=== PATIENT | female | born 1980 | race Caucasian/White ===

== ENCOUNTER 2016-07-22 15:16 | Day surgery (SDC) | payer MEDICARE, MEDICAID ==
[2016-07-22] MEDS ORDERED: NO HOME MEDICATION XX (15:30)
[2016-07-22 16:02] LABS: BASO % 0.1 % (0-2); EOS % 0.8 % (0-7); EOSINOPHIL ABSOLUTE COUNT 0.1 tho/cmm (0.0-0.7); HCT-HEMATOCRIT 41.7 % (34.0-49.0); HGB-HEMOGLOBIN 14.8 gm/dl (12.0-15.5); IMMATURE GRANULOCYTES ABSOLUTE 0.04 tho/cmm (0-0.03); IMMATURE GRANULOCYTES PERCENT 0.3 % (0-0.3); LYMPH ABSOLUTE COUNT 2.5 tho/cmm (0.8-4.5); MCH (MEAN CORPUSCULAR HGB) 29.9 pg (28.0-32.0); MCHC MEAN CORPUSCULAR HGB CONC 35.5 % (32.0-36.0); MCV (MEAN CELL VOLUME) 84.2 fl (82.0-96.0); MEAN PLATELET VOLUME 10.1 cmc (9.4-12.4); MONO % 5.1 % (0-12); MONOCYTE ABSOLUTE COUNT 0.7 tho/cmm (0.0-1.2); NEUTROPHIL ABSOLUTE COUNT 10.4 tho/cmm (1.6-8.0); NEUTROPHIL-AUTOMATED 10.4 tho/cmm (1.6-8.0); NEUTROPHILS % 75.7 % (40-80); PLATELET COUNT 267 tho/cmm (150-450); RED BLOOD COUNT 4.95 mil/cmm (4.00-5.20); RED CELL DISTRIBUTION WIDTH 13.4 % (12.4-16.4); WHITE BLOOD COUNT 13.8 tho/cmm (4.0-10.0)
[2016-07-22 16:08] LABS: PREGNANCY-SERUM POSITIVE (NEGATIVE)
[2016-07-22 16:15] LABS: ALBUMIN 3.8 g/dl (3.5-5.0); ALKALINE PHOSPHATASE 59 U/L (33-138); ALT/SGPT 24 U/L (12-78); ANION GAP 17 mmol/L (0-20); AST/SGOT 16 U/L (10-40); BILIRUBIN,TOTAL 1.6 mg/dl (0-1.5); BLOOD UREA NITROGEN 8 mg/dl (6-24); CALCIUM 8.8 mg/dl (8.5-10.5); CARBON DIOXIDE-VENOUS 19 mmol/L (22-32); CHLORIDE 106 mmol/l (96-110); CREATININE 0.98 mg/dl (0.50-1.10); GLUCOSE 104 mg/dL (70-110); LIPASE 127 U/L (73-393); POTASSIUM 3.9 mmol/L (3.7-5.1); SODIUM 138 mmol/L (135-145); eGFR VALUE FOR BLACK 85 mL/Min
[2016-07-22 19:54] LABS: HCT-HEMATOCRIT 32.6 % (34.0-49.0); MCV (MEAN CELL VOLUME) 87.2 fl (82.0-96.0); RED CELL DISTRIBUTION WIDTH 13.6 % (12.4-16.4)
[2016-07-23 00:48] LABS: BASO % 0.1 % (0-2); HCT-HEMATOCRIT 28.9 % (34.0-49.0); IMMATURE GRANULOCYTES ABSOLUTE 0.05 tho/cmm (0-0.03); IMMATURE GRANULOCYTES PERCENT 0.4 % (0-0.3); LYMPH % 6.5 % (20-45); LYMPH ABSOLUTE COUNT 0.8 tho/cmm (0.8-4.5); MCH (MEAN CORPUSCULAR HGB) 29.7 pg (28.0-32.0); MCHC MEAN CORPUSCULAR HGB CONC 34.6 % (32.0-36.0); MCV (MEAN CELL VOLUME) 85.8 fl (82.0-96.0); MEAN PLATELET VOLUME 9.5 cmc (9.4-12.4); MONO % 1.3 % (0-12); MONOCYTE ABSOLUTE COUNT 0.2 tho/cmm (0.0-1.2); NEUTROPHIL ABSOLUTE COUNT 10.8 tho/cmm (1.6-8.0); NEUTROPHIL-AUTOMATED 10.8 tho/cmm (1.6-8.0); NEUTROPHILS % 91.7 % (40-80); PLATELET COUNT 161 tho/cmm (150-450); RED BLOOD COUNT 3.37 mil/cmm (4.00-5.20); RED CELL DISTRIBUTION WIDTH 13.8 % (12.4-16.4); WHITE BLOOD COUNT 11.8 tho/cmm (4.0-10.0)
[2016-07-23] MEDS ORDERED: IBUPROFEN600 M1 PO (10:52)
[2016-07-23] MEDS ORDERED: NORCO 5-325 TA1 EACH PO (10:55)
[2016-07-23] MEDS ORDERED: COLACE100 M1 PO (10:57)
[2016-07-23] MEDS ORDERED: VALTREX500 M1 PO (10:58)
[2016-07-23] MEDS ORDERED: REMOVE PATCH (11:04)
--- NOTE | 2016-07-23 12:42 | NUR ---
VIRTUAL CARE NOTE: PT RESTING ON BED, READY FOR DISCHARGE INSTRUCTIONS, NO FAMILY MEMBER IN THE ROOM AT THIS TIME. INFORMATION GIVEN TO PT. PT DENIES QUESTIONS. PT WOULD LIKE TO SHOWER BEFORE DISCHARGE, RONDA CAMPO IN THE ROOM AT THIS TIME WILL ASSIST PT WITH THAT.
== END 2016-07-23 14:08 ==
LOC: EDMED 15:16 → EMR2 17:29 → PACU 19:27 → 5WD 21:00
PROVIDERS: Emergency Medicine; Obstetrics & Gynecology
PROC: 10T24ZZ Resection of Products of Conception, Ectopic, Percutaneous Endoscopic Approach (ICD-10-PCS; principal; 2016-07-22)
PROC: 0UT64ZZ Resection of Left Fallopian Tube, Percutaneous Endoscopic Approach (ICD-10-PCS; 2016-07-22)
PROC: 30233N1 Transfusion of Nonautologous Red Blood Cells into Peripheral Vein, Percutaneous Approach (ICD-10-PCS; 2016-07-22)
DX: O00.10 Tubal pregnancy without intrauterine pregnancy (principal); N83.8 Other noninflammatory disorders of ovary, fallopian tube and broad ligament; E66.9 Obesity, unspecified; M41.9 Scoliosis, unspecified; G47.30 Sleep apnea, unspecified; R42 Dizziness and giddiness; Z88.1 Allergy status to other antibiotic agents; Z88.5 Allergy status to narcotic agent; Z87.891 Personal history of nicotine dependence; Z90.89 Acquired absence of other organs; Z98.890 Other specified postprocedural states
CPT/HCPCS: J0131; J1170; J1580; J2175; J2405; J3010; J7030; P9016